=== PATIENT | male | born 1985 | race African-American/Black ===

== ENCOUNTER 2017-11-17 08:45 | Outpatient (CLI) | payer BC ==
[2017-11-17 09:36] LABS: Hemoglobin 14.3 g/dL (14.0-18.0); Mean Corpuscular HGB CONC 31.6 g/dL (32.0-36.0); Mean Corpuscular Hemoglobin 29.2 pg (27.0-31.0); Mean Corpuscular Volume 92.2 fL (78.0-98.0); Mean Platelet Volume 6.6 fL (7.4-10.4); Platelet Count 412 thou/uL (130-400); RBC Distribution Width 11.6 % (11.5-14.5); White Blood Cell (WBC) Count 5.8 thou/uL (4.8-10.8)
[2017-11-17 09:49] LABS: Bilirubin Negative (Negative); Blood, Urine Negative (Negative); Clarity CLEAR (Clear); Glucose, Urine (Dipstick) Negative (Negative); Leukocyte Negative (Negative); Nitrite Negative (Negative); Protein, Urine (Dipstick) Negative (Neg-Trace); Specific Gravity, Urine 1.025 (1.002-1.036); pH, Urine 6.5 (5.0-9.0)
[2017-11-17 09:51] LABS: INR-International Normal Ratio 0.9; PTT 29.9 SEC (22.9-36.1); Prothrombin Time 12.5 SEC (12.0-14.7)
[2017-11-17 09:54] LABS: Bacteria/HPF None Seen HPF (None Seen); Hyaline Casts/LPF 0-3 HYALINE CAST LPF (0-3 Hyaline); Squamous Epithelial None Seen HPF (0-3); WBC/HPF None Seen HPF (0-3)
[2017-11-17 09:56] LABS: Anion Gap 10 mmol/L (10-20); BUN (Urea Nitrogen) 10 mg/dL (8.9-20.6); Calc. Creatinine Clearance 0 mL/min (70-130); Calcium 9.7 mg/dL (7.8-10.44); Carbon Dioxide 26 mmol/L (22-29); Chloride 106 mmol/L (98-107); Estimated GFR-MDRD 88; Glucose 94 mg/dL (70-105); Potassium 4.4 mmol/L (3.5-5.1); Sodium 138 mmol/L (136-145)
== END 2017-11-17 08:46 | disposition home or self-care (01) ==
LOC: LABBT 08:45
PROVIDERS: ATTEND Urology
DX: Z01.812 Encounter for preprocedural laboratory examination (principal); N48.89 Other specified disorders of penis
CPT/HCPCS: 80048; 81001; 85027; 85610; 85730; 87086

== ENCOUNTER 2017-11-26 06:07 | Day surgery (SDC) | payer BC ==
[2017-11-17 08:56] VITALS: BMI 36.0
[2017-11-26] MEDS ORDERED: CEFAZOLIN/Water 2 GM/20 ML SYRINGE ONE (08:12)
[2017-11-26] MEDS ORDERED: Midazolam HCl 2 mg/2 ml Vial ONE ×2 (08:29→08:52)
[2017-11-26] MEDS ORDERED: Bupivacaine 0.25% HCL 30 ML VIAL ONE (08:47)
[2017-11-26] MEDS ORDERED: Bacitracin Zinc Ointment 30 gm TUBE ONE (08:47)
[2017-11-26] MEDS ORDERED: Fentanyl 100 MCG/2 ML VIAL ONE (08:52)
[2017-11-26] MEDS ORDERED: Promethazine HCl 25 MG/ML VIAL ONE (10:55)
--- NOTE | 2017-11-26 12:17 | OP ---
DATE OF PROCEDURE: 11/26/2017 SERVICE: Urology. SURGEON: Michael Muñiz M.D. PREOPERATIVE DIAGNOSES: Posthitis and mild phimosis. POSTOPERATIVE DIAGNOSES: Posthitis and mild phimosis. PROCEDURE PERFORMED: Circumcision. INDICATIONS FOR PROCEDURE: Mr. Dangelo is a 32-year-old black male who initially presented to [facility] with complaints regarding fissures and tearing of his foreskin with erections and intercourse. The issue has been persisting and he desired a circumcision for correction. All risks and benefits have been discussed and we have agreed to proceed forward. DESCRIPTION OF PROCEDURE: After identification of arm band and verification of consent, the patient was brought back to the operating room where he underwent general anesthesia with an LMA. He was then placed in the supine position and prepped and draped in usual sterile fashion. An appropriate timeout, a dorsal penile nerve block was performed with 10 mL of 0.25% Marcaine plain. A frenulotomy was performed using a bipolar and hemostats. A circumferential incision was made behind the coronal sulcus using a 15 blade down to Smith's fascia. The foreskin was then reduced and a counter incision made overlying the first incision. The intervening skin was then removed using a combination of sharp dissection and Bovie electrocautery. Meticulous hemostasis performed with bipolar on the underlying tissue and once completely dried, the skin was reapproximated using a 4-0 chromic in interrupted fashion circumferentially. The redundant skin on the bottom side was excised using tenotomy scissors and the defect closed with a 4-0 chromic in a running fashion. Upon completion, the circumcision looked good with no evidence of bleeding. Dermabond was applied and the incision and once dried, a Telfa compression dressing applied. The remaining block with 18 mL more of 0.25% Marcaine plain was used as a ring block around the penis. The patient was then awakened and taken to PACU for recovery in stable condition. COMPLICATIONS: None. ESTIMATED BLOOD LOSS: 30 mL. RETAINED TUBES AND DRAINS: None. SPECIMENS: Foreskin. DISPOSITION: The patient will be discharged home and follow up with [facility] in approximately 1-2 weeks for a postop check. LUIS ANTONIO
== END 2017-11-26 13:17 | disposition home or self-care (01) ==
LOC: SDC 06:07
PROVIDERS: ATTEND Urology
PROC: 0VTTXZZ Resection of Prepuce, External Approach (ICD-10-PCS; principal; 2017-11-26)
DX: N47.1 Phimosis (principal); N47.7 Other inflammatory diseases of prepuce; R23.4 Changes in skin texture
CPT/HCPCS: 88304; 96374; J2250; J2550; J3010; S0020